=== PATIENT | female | born 1960 | race Two or more races ===

== ENCOUNTER 2017-11-28 04:33 | Emergency (ER) | payer MEDICAID ==
[~2017-11-28] VITALS: Ht 162.6 cm; Wt 118.0 kg
[~2017-11-28 04:33] MED LIST: FERR325T28 PO; GLIP-127 PO; GLU850T PO; LANTUS SUBCUT; MAGN400C PO; MULT-1179 PO
[2017-11-28] MEDS ORDERED: ibuprofen 200mg tablet PO ONE (04:55)
[2017-11-28] MEDS ORDERED: levoFLOXACIN 500mg tablet PO ONE (04:55)
[2017-11-28] MEDS ORDERED: clindamycin 150mg capsule PO ONE (04:55)
[2017-11-28] MEDS ORDERED: CLIN-80 PO (04:56)
[2017-11-28] MEDS ORDERED: LEVO500T2 PO (04:56)
[2017-11-28 05:31] VITALS: BP 130/76
== END 2017-11-28 05:33 | disposition home or self-care (01) ==
LOC: ER 04:33
DX: L03.116 Cellulitis of left lower limb (principal); E11.9 Type 2 diabetes mellitus without complications; Z79.899 Other long term (current) drug therapy; Z79.4 Long term (current) use of insulin
CPT/HCPCS: 99284

== ENCOUNTER 2020-02-01 13:52 | Outpatient (CLI) | payer MEDICARE, MEDICAID ==
[~2020-02-01 13:52] MED LIST changes: +CLIN-97 PO
== END 2020-02-01 23:59 | disposition home or self-care (01) ==
LOC: RAD 13:52
PROVIDERS: ATTEND Internal Medicine Gastroenterology
DX: K21.9 Gastro-esophageal reflux disease without esophagitis (principal)
CPT/HCPCS: 74230